=== PATIENT | female | born 1950 | race Caucasian/White ===

== ENCOUNTER 2019-09-26 12:44 | Outpatient (CLI) | payer MEDICARE, OTHER, SELFPAY ==
--- NOTE | 2019-09-26 12:54 | MM_ITS ---
WS: [id number] BILATERAL DIGITAL SCREENING MAMMOGRAPHY WITH CAD CLINICAL INFORMATION: SCREEN HISTORY: Screening mammogram. No current complaints. COMPARISON: November 29, 2015 TECHNIQUE: Bilateral CC and MLO views. FINDINGS: The breasts are composed of heterogeneous fibroglandular density tissue, which can limit the detectio n of small underlying mass lesions. No suspicious mass, asymmetry, calcifications, or architectural d istortion. No evidence of malignancy. Stable dystrophic calcification left breast. MM/[place] [id number] IMPRESSION: BI-RADS: 2-Benign FOLLOW UP: 1 Year Follow-up Recommend return to annual screening mammography.
== END 2019-09-26 12:45 | disposition home or self-care (01) ==
LOC: RADSHAW 12:50
PROVIDERS: PCP Family Medicine; Visit Provider Family Medicine
DX: Z12.31 Encounter for screening mammogram for malignant neoplasm of breast (principal)
CPT/HCPCS: 77067

== ENCOUNTER 2020-04-05 09:09 | Outpatient (CLI) | payer MEDICARE, OTHER, SELFPAY ==
--- NOTE | 2020-04-05 09:15 | US_ITS ---
WS: [id number] ULTRASOUND RENAL TECHNIQUE: Ultrasound examination of both kidneys. CLINICAL INFORMATION: RENAL INSUFFICIENCY COMPARISON: None. FINDINGS: RIGHT: Small cyst noted right kidney measuring 1.3 x 1.5 cm Right kidney is normal in size and appearance. Echogenicity: Normal. Cortical thickness: 1.2 cm; Normal. Hydronephrosis: None. Perinephric fluid: None. Right kidney measures: 9.7 cm x 4.8 cm x 4.2 cm. LEFT: Left kidney is normal in size and appearance. Echogenicity: Normal. Cortical thickness: 1.8 cm; Normal. Hydronephrosis: None. Perinephric fluid: None. Left kidney measures: 9.2 cm x 4.5 cm x 4.2 cm. Normal visualized aorta. Normal bladder. US/US renal BI* [id number] IMPRESSION: 1. Small simple cyst mid right kidney measuring 1.3 x 1.5 CM. 2. No hydronephrosis in either kidney.
== END 2020-04-05 09:10 | disposition home or self-care (01) ==
LOC: US 09:10
PROVIDERS: PCP Family Medicine; Visit Provider Family Medicine
DX: N28.9 Disorder of kidney and ureter, unspecified (principal); N28.1 Cyst of kidney, acquired
CPT/HCPCS: 76770

== ENCOUNTER 2020-11-16 15:01 | Outpatient (CLI) | payer MEDICARE, OTHER, SELFPAY ==
--- NOTE | 2020-11-16 15:13 | MM_ITS ---
WS: [id number] BILATERAL DIGITAL SCREENING MAMMOGRAPHY WITH CAD CLINICAL INFORMATION: SCREENING HISTORY: Screening mammogram. No current complaints. COMPARISON: September 26, 2019 TECHNIQUE: Bilateral CC and MLO views. FINDINGS: The breasts are composed of heterogeneous fibroglandular density tissue, which can limit the detectio n of small underlying mass lesions. 7 mm asymmetric density inferior left breast best seen on the MLO view, likely at the 6:00 position on the cc view. This is more prominent compared to previous and re commend further evaluation with spot compression views and ultrasound. Stable dystrophic calcification left breast. A few lucent centered calcifications. MM/[place] [id number] IMPRESSION: BI-RADS: 0-Incomplete: Need additional imaging evaluation FOLLOW UP: Need Additional Imaging Recommend left diagnostic mammography and ultrasound for the asymmetric density left breast.
== END 2020-11-16 15:02 | disposition home or self-care (01) ==
LOC: RADSHAW 15:08
PROVIDERS: PCP Family Medicine; Visit Provider Family Medicine
DX: Z12.31 Encounter for screening mammogram for malignant neoplasm of breast (principal)
CPT/HCPCS: 77067

== ENCOUNTER 2020-12-06 14:05 | Outpatient (CLI) | payer MEDICARE, OTHER, SELFPAY ==
--- NOTE | 2020-12-06 14:11 | MM_ITS ---
WS: [id number] LEFT DIGITAL MAMMOGRAPHY WITH CAD CLINICAL INFORMATION: ABNORMAL MAMMOGRAM LT BREAST LUMP TECHNIQUE: 3 views of the left breast were obtained. FINDINGS: The left breast is composed of heterogeneous fibroglandular density tissue, which can limit the detec tion of small underlying mass lesions. Asymmetric density inferior left breast is again seen but less distinct today. Ultrasound left breast is pending. ULTRASOUND BREAST LEFT TECHNIQUE: Ultrasound left breast focused area of concern. CLINICAL INFORMATION: ABNORMAL MAMMOGRAM LT BREAST LUMP COMPARISON: None. FINDINGS: Ultrasound left breast the 6:00 position 3 cm from the nipple. Tiny hypoechoic lesion at the 6:00 pos ition measuring 4.0 x 2.0 x 4.6 mm likely corresponds to the mammographic density. This tiny lesion i s indeterminant and Recommend further evaluation with ultrasound-guided biopsy. MM/MM spot [facility] [id number] IMPRESSION: BI-RADS: 4-Suspicious Finding-Biopsy Should Be Considered FOLLOW UP: US Guided Biopsy Recommended RECOMMEND ULTRASOUND-GUIDED BIOPSY OF THE SMALL 6:00 LEFT BREAST LESION
== END 2020-12-06 14:06 | disposition home or self-care (01) ==
LOC: RADSHAW 14:09
PROVIDERS: PCP Family Medicine; Visit Provider Family Medicine
DX: R92.8 Other abnormal and inconclusive findings on diagnostic imaging of breast (principal); N63.25 Unspecified lump in the left breast, overlapping quadrants
CPT/HCPCS: 76642; 77065

== ENCOUNTER 2020-12-22 12:54 | Outpatient (CLI) | payer MEDICARE, OTHER, SELFPAY ==
--- NOTE | 2020-12-22 13:15 | US_ITS ---
WS: [id number] ULTRASOUND-GUIDED LEFT BREAST BIOPSY HISTORY: ABNORMAL MAMMOGRAM LEFT BREAST COMPARISON: 2020, 11/16/2020 and 09/26/2019 Procedure, risks and complications are explained to the patient. Medications are reviewed. Consent is obtained. The mass in the LEFT breast is localized with ultrasound. Skin is cleansed with ChloraPrep and anesth etized with 1% buffered lidocaine. Small dermatome is made. Under sterile conditions mass is biopsied with a 14-gauge Achieve needle. Multiple core biopsies are performed. Material placed in formalin an d sent to pathology for review. No complications encountered. Breast tissue marker ([employer] ultrasound enhanced ribbon): Single. Patient left the radiology suite with no complications. Patient is instructed to return to [facility] or [facility] with any concerns. US/[place] [id number] IMPRESSION: 1. Uncomplicated core needle biopsy LEFT breast nodule at 6:00. PATHOLOGY: Negative for malignancy benign breast tissue with stromal sclerosis and fat necrosis. RECOMMENDATION: 6 month follow-up. Recommend diagnostic LEFT mammogram and possible breast ultrasound follow-up in 6 months. Follow-up imaging is to confirm there is no enlarging mass.
== END 2020-12-22 12:55 | disposition home or self-care (01) ==
PROVIDERS: PCP Family Medicine; Visit Provider Family Medicine
DX: R92.8 Other abnormal and inconclusive findings on diagnostic imaging of breast (principal); N64.1 Fat necrosis of breast
CPT/HCPCS: 19083; 88305

== ENCOUNTER 2020-12-26 18:09 | Observation (INO) | payer MEDICARE, OTHER, SELFPAY ==
[2020-12-26] VITALS (7 sets, daily range): BP systolic 142–177; BP diastolic 71–93; PULSE 54–71; RESP 16–18; TEMP 36.6; O2SAT 94–98; BMI 29.1
--- NOTE | 2020-12-26 18:21 | ECG_ITS ---
[facility] Test Date: 2020-12-26 Pat Name: Bing Julien Department: Room: Gender: Female Drone Operator: : 1950 Requested By: Vince Stovall Order Number: [id number] Nba MD: Bessie Gomez M.D. Measurements Intervals [place] Rate: 58 P: -11 SC: 128 QRS: -24 QRSD: 89 T: 50 QT: 429 QTc: 424 Interpretive Statements SINUS BRADYCARDIA LOW QRS VOLTAGE IN PRECORDIAL LEADS [QRS DEFLECTION < 1.0 mV IN CHEST LEADS] POSSIBLE ANTERIOR MYOCARDIAL INFARCTION , OF INDETERMINATE AGE [30 ms Q WAVE IN V3/V4, OR R < 0.2 mV IN V4] Compared to ECG 01/16/2017 17:36:21 Low QRS voltage now present Myocardial infarct finding now present Sinus rhythm no longer present Sinus arrhythmia no longer present Short SC interval no longer present Electronically Signed On 12-27-2020 13:05:28 CDT by Bessie Gomez M.D. [email or web address]
--- NOTE | 2020-12-26 19:00 | ED_ITS ---
HPI - General Adult General: Chief complaint: Chest Pain Stated complaint: Chest, abd, back pain Time Seen by Provider: 12/26/20 18:28 History of Present Illness: HPI narrative: Patient is a 70-year-old female with a history of hypertension, recent UTI status post antibiotics, who presents emergency room with complaints of midepigastric abdominal pain and right upper quadrant abdominal pain shortly after eating today. Patient describes an achy pain that started 30 minutes after eating. In addition, patient also reports a dull chest pain that radiates towards the back which has been going on for the last 4 years. Patient was admitted to the hospital for evaluate chest pain a few years ago without any significant findings. At this time, patient denies any chest pain, nausea/vomiting, diaphoresis, shoulder pain back pain, diarrhea, melena/hematoch ezia, cough runny nose, sore throat. Onset:1 hr ago Duration:1 hr Location:home Severity:moderate Review of Systems Narrative: Constitutional: No fever, no chills. HEENT: No vision changes CV: +- pain radiating to the back no palpitations PULM: no cough, no dyspnea. GI: +abdominal pain, -N/-V/-D. : No dysuria MSKEL: No muscle pain SKIN: No new rashes, no lesions. NEURO: No headache, no focal weakness. HEME: No visible bruises PSYCH: Normal mood Physical Exam Narrative: EXAM NARRATIVE: Head: Atraumatic Eyes: PERRL, conjunctiva without injection ENT: Mucous membrane moist NECK: Supple, ROM intact LUNGS: LCTAB, no crackles/rhonchi CV: RRR ABDOMEN: Soft, +mild epigastric abdominal tenderness, neg baez signs, no guarding or rebound tenderness. EXTREMITY: Normal ROM SKIN: No rash or erythema NEURO: Awake and alert, no focal motor deficits PSYCH: Normal mood and affect Course Vital Signs: Vital signs: Vital Signs Temperature 97.9 F 12/26/20 18:22 Pulse Rate 70 12/26/20 21:55 Respiratory Rate 18 12/26/20 21:55 Blood Pressure 177/77 12/26/20 21:55 Pulse Oximetry 98 12/26/20 21:55 MDM - General Adult MDM Narrative: Medical decision making narrative: 70F w/ hx of HTN, stress test >3 years ago presenting to the ED with chronic chest pain radiating to the back chronic and new onset of epigastric pain. Currently chest pain free. Troponin of 16 above prior baseline. EKG showing regular sinus rhythm at HT of [address] elevations. T wave inversions in V1-V2. Normal AL, QRS, QT intervals. Given ASA, nitro. Mid-epigastric pain - will treat with pepcid and GI cocktail Patient will be admitted for chest pain workup. Lab Data: Labs: Lab Results 12/26/20 12/26/20 12/26/20 Range/Units 18:54 18:54 18:54 WBC 9.0 (4.0-10.0) 10^3/ uL RBC 5.01 (4.1-5.3) 10^6/u L Hgb 14.3 (11.5-15.3) g/dL Hct 44.6 (37.0-47.0) % MCV 89.0 (81-99) fl MCH 28.5 (28.0-34.0) pg MCHC 32.1 (30.0-36.0) g/dL RDW 12.6 (12.1-15.1) % Plt Count 299 (130-400) 10^3/c mm MPV 11.7 H (7.4-10.4) fL Neut % (Auto) 70.7 % Lymph % (Auto) 18.7 % [place] % (Auto) 8.3 % Eos % (Auto) 1.2 % Baso % (Auto) 0.8 % Neut # (Auto) 6.33 (1.8-7.7) 10^3/u L Lymph # (Auto) 1.7 (0.8-4.8) 10^3/u L Bleck[place] # (Auto) 0.7 (0.2-0.9) 10^3/u L Eos # (Auto) 0.1 (0.0-0.8) 10^3/u L Baso # (Auto) 0.1 (0.0-0.1) 10^3/u L Nucleated RBC % (a uto) 0 % Nucleated RBCs # 0.0 /100WBC D-Dimer (0-0.59) ug/mIFE U Sodium 133 L (136-145) mmol/L Potassium 4.1 (3.5-5.1) mmol/L Chloride 96 L (98-107) mmol/L Carbon Dioxide 25 (22-29) mmol/L Anion Gap 16.1 (5-19) BUN 12 (8-23) mg/dL Creatinine 1.0 H (0.5-0.9) mg/dL GFR Calculation 55.1 L (90-130) mL/min Glucose 104 (65-115) mg/dL Calculated Osmolal ity 276 L (285-295) mOsm/k g Calcium 10.2 (8.5-10.5) mg/dL Total Bilirubin 0.2 (0.15-1.2) mg/dL AST 11 (0-32) U/L ALT 8 (0-33) U/L Alkaline Phosphata se 74 (35-105) IU/L Troponin T Gen 5 n g/L 17 H (0-10) ng/L Total Protein 6.5 L (6.6-8.7) g/dL Albumin 4.2 (3.5-5.2) g/dL Globulin 2.3 (1.3-4.6) g/dL Lipase 56 (13-60) U/L Urine Color (Yellow) Urine Appearance (CLEAR) Urine pH (5-7) Ur Specific Gravit y (1.005-1.030) Urine Protein (Negative) Urine Glucose (UA) (Normal) Urine Ketones (Negative) Urine Blood (Negative) Urine Nitrate (Negative) Urine Bilirubin (Negative) Urine Urobilinogen (Negative) mg/dL Ur Leukocyte Freya ase (Negative) 12/26/20 12/26/20 12/26/20 Range/Units 19:00 19:23 21:41 WBC (4.0-10.0) 10^3/ uL RBC (4.1-5.3) 10^6/u L Hgb (11.5-15.3) g/dL Hct (37.0-47.0) % MCV (81-99) fl MCH (28.0-34.0) pg MCHC (30.0-36.0) g/dL RDW (12.1-15.1) % Plt Count (130-400) 10^3/c mm MPV (7.4-10.4) fL Neut % (Auto) % Lymph % (Auto) % [place] % (Auto) % Eos % (Auto) % Baso % (Auto) % Neut # (Auto) (1.8-7.7) 10^3/u L Lymph # (Auto) (0.8-4.8) 10^3/u L [place] # (Auto) (0.2-0.9) 10^3/u L Eos # (Auto) (0.0-0.8) 10^3/u L Baso # (Auto) (0.0-0.1) 10^3/u L Nucleated RBC % (a uto) % Nucleated RBCs # /100WBC D-Dimer <= 0.27 (0-0.59) ug/mIFE U Sodium (136-145) mmol/L Potassium (3.5-5.1) mmol/L Chloride (98-107) mmol/L Carbon Dioxide (22-29) mmol/L Anion Gap (5-19) BUN (8-23) mg/dL Creatinine (0.5-0.9) mg/dL GFR Calculation (90-130) mL/min Glucose (65-115) mg/dL Calculated Osmolal ity (285-295) mOsm/k g Calcium (8.5-10.5) mg/dL Total Bilirubin (0.15-1.2) mg/dL AST (0-32) U/L ALT (0-33) U/L Alkaline Phosphata se (35-105) IU/L Troponin T Gen 5 n g/L 20 H (0-10) ng/L Total Protein (6.6-8.7) g/dL Albumin (3.5-5.2) g/dL Globulin (1.3-4.6) g/dL Lipase (13-60) U/L Urine Color Yellow (Yellow) Urine Appearance Clear (CLEAR) Urine pH 5 (5-7) Ur Specific Gravit y 1.015 (1.005-1.030) Urine Protein Neg (Negative) Urine Glucose (UA) Norm (Normal) Urine Ketones Negative (Negative) Urine Blood Neg (Negative) Urine Nitrate Negative (Negative) Urine Bilirubin Neg (Negative) Urine Urobilinogen Norm (Negative) mg/dL Ur Leukocyte Freya ase Negative (Negative) Imaging Data^: Other Imaging: Radiologist's impression: [facility] [id number] ReportSigned Patient: David Julien #: [id number]: [id number]#:[id number]/Sex: 70 / FADM Date: 12/26/20Loc: ERRoom/Bed:Attending Dr: Ordering Provider/Ordering MD: Vince Stovall MD Date of Service: 12/26/20 Procedure(s): XR chest 1V portable [id number] Accession Number(s): [id number] Report Number: [id number] PROCEDURE INFORMATION: Exam: XR Chest Exam date and time: 12/26/2020 7:01 PM Age: 70 years old Clinical indication: Pain; Chest pressure; Additional info: Chest pain TECHNIQUE: Imaging protocol: XR of the chest. Views: 1 view. COMPARISON: CR Chest 1 [place] [id number] 01/16/2017 10:50 AM FINDINGS: Lungs: Unremarkable. No consolidation. Pleural spaces: Unremarkable. No pleural effusion. No pneumothorax. Heart/Mediastinum: Unremarkable. No cardiomegaly. Bones/joints: Unremarkable. XR/XR chest 1V portable [id number] IMPRESSION: No acute findings. Dictated By:Lb Cano By:Lb Cano Date/Time:12/26/20D/ [address] [id number] ReportSigned Patient: David Julien #: [id number]: [id number]#:[id number]/Sex: 70 / FADM Date: 12/26/20Loc: ERRoom/Bed:Attending Dr: Ordering Provider/Ordering MD: Vince Stovall MD Date of Service: 12/26/20 Procedure(s): XR chest 1V portable [id number] Accession Number(s): [id number] Report Number: [id number] PROCEDURE INFORMATION: Exam: XR Chest Exam date and time: 12/26/2020 7:01 PM Age: 70 years old Clinical indication: Pain; Chest pressure; Additional info: Chest pain TECHNIQUE: Imaging protocol: XR of the chest. Views: 1 view. COMPARISON: CR Chest 1 [place] [id number] 01/16/2017 10:50 AM FINDINGS: Lungs: Unremarkable. No consolidation. Pleural spaces: Unremarkable. No pleural effusion. No pneumothorax. Heart/Mediastinum: Unremarkable. No cardiomegaly. Bones/joints: Unremarkable. XR/XR chest 1V portable [id number] IMPRESSION: No acute findings. Dictated By:Lb Cano By:Lb Cano Date/Time:12/26/20D/ 32 Discharge Plan Discharge Prescriptions: No Action levothyroxine 100 mcg tablet RF: 0 lorazepam 0.5 mg tablet RF: 0 lisinopril 10 mg tablet RF: 0 lovastatin 20 mg tablet RF: 0 escitalopram oxalate 10 mg tablet RF: 0 Coding Level of Care Code ED Recreational Programs Director for Jaret Jasso
--- NOTE | 2020-12-26 19:01 | USR_ITS ---
PROCEDURE INFORMATION: Exam: US Abdomen, Limited; Right Upper Quadrant Exam date and time: 12/26/2020 7:01 PM Age: 70 years old Clinical indication: Abdominal pain; Acute; Additional info: Ruq abd pain with eating, rule out stone TECHNIQUE: Imaging protocol: US abdomen. Real time ultrasound with image documentation. Limited exam focused on the right upper quadrant. COMPARISON: US renal BI* [id number] 04/05/2020 9:19 AM FINDINGS: Liver: Normal. No masses. Gallbladder: Normal. No gallstones. There is no gallbladder wall thickening. Common bile duct: Normal. No stones. No dilation. Pancreas: Visualized pancreas is unremarkable. Right kidney: Normal. No mass. No hydronephrosis. US/US gall bladder [id number] IMPRESSION: No acute findings.
--- NOTE | 2020-12-26 19:01 | XRR_ITS ---
PROCEDURE INFORMATION: Exam: XR Chest Exam date and time: 12/26/2020 7:01 PM Age: 70 years old Clinical indication: Pain; Chest pressure; Additional info: Chest pain TECHNIQUE: Imaging protocol: XR of the chest. Views: 1 view. COMPARISON: CR Chest 1 [place] [id number] 01/16/2017 10:50 AM FINDINGS: Lungs: Unremarkable. No consolidation. Pleural spaces: Unremarkable. No pleural effusion. No pneumothorax. Heart/Mediastinum: Unremarkable. No cardiomegaly. Bones/joints: Unremarkable. XR/XR chest 1V portable [id number] IMPRESSION: No acute findings.
[2020-12-26 19:12] LABS: Basophils # 0.1 10^3/uL (0.0-0.1); Basophils % 0.8 %; Eosinophils # 0.1 10^3/uL (0.0-0.8); Eosinophils % 1.2 %; Hematocrit 44.6 % (37.0-47.0); Hemoglobin 14.3 g/dL (11.5-15.3); Lymphocytes # 1.7 10^3/uL (0.8-4.8); Lymphocytes % 18.7 %; Mean Corpuscular HGB Conc 32.1 g/dL (30.0-36.0); Mean Corpuscular Hemoglobin 28.5 pg (28.0-34.0); Mean Platelet Volume 11.7 fL (7.4-10.4); Monocytes # 0.7 10^3/uL (0.2-0.9); Monocytes % 8.3 %; Neutrophils # 6.33 10^3/uL (1.8-7.7); Neutrophils % 70.7 %; Nucleated Red Blood Cells % 0 %; Platelet Count 299 10^3/cmm (130-400); Red Blood Count 5.01 10^6/uL (4.1-5.3); Red Cell Distribution Width 12.6 % (12.1-15.1)
[2020-12-26 19:38] LABS: Troponin T (5th) Once 17 ng/L (0-10)
[2020-12-26 19:39] LABS: Alanine Aminotransferase 8 U/L (0-33); Albumin Level 4.2 g/dL (3.5-5.2); Alkaline Phosphatase 74 IU/L (35-105); Anion Gap 16.1 (5-19); Aspartate Amino Transferase 11 U/L (0-32); Blood Urea Nitrogen 12 mg/dL (8-23); Calcium 10.2 mg/dL (8.5-10.5); Carbon Dioxide 25 mmol/L (22-29); Chloride 96 mmol/L (98-107); Globulin 2.3 g/dL (1.3-4.6); Glomerular Filtration Rate 55.1 mL/min (90-130); Glucose 104 mg/dL (65-115); Lipase 56 U/L (13-60); Osmolality Calculated 276 mOsm/kg (285-295); Potassium 4.1 mmol/L (3.5-5.1); Sodium 133 mmol/L (136-145); Total Bilirubin 0.2 mg/dL (0.15-1.2); Total Protein 6.5 g/dL (6.6-8.7)
[2020-12-26 20:04] LABS: Add Urine Microscopic? NO; Charge for UA Resulting for Rev
[2020-12-26 20:09] LABS: Bilirubin Urine Neg (Negative); Blood Urine Neg (Negative); Glucose Urine UA Norm (Normal); Ketones Urine Negative (Negative); Leukocyte Esterase Urine Negative (Negative); Nitrate Urine Negative (Negative); Protein Urine Neg (Negative); Specific Gravity, Urine 1.015 (1.005-1.030); Urine Appearance Clear (CLEAR); Urine Color Yellow (Yellow); Urobilinogen Urine Norm (Negative); pH Urine 5 (5-7)
[2020-12-26 20:23] LABS: D Dimer <= 0.27 ug/mIFEU (0-0.59)
[2020-12-26] MEDS: ondansetron 2 mg/ML SDV 2 mL 4 MG IVP (21:47)
[2020-12-26 22:08] LABS: Troponin T (5th) Once 20 ng/L (0-10)
[2020-12-26] MEDS: LORazepam 0.5 mg Tablet PO (22:55)
[2020-12-26] MEDS: aspirin 325 mg EC Tablet PO (22:56)
[2020-12-26] MEDS: lidocaine 2% viscous 15 ML, aluminum-mag hydrox-simethicon 30 ML, sucralfate oral liq 1 GM PO (22:56)
[2020-12-26] MEDS: famotidine 20 mg Tablet PO (22:56)
[2020-12-27] VITALS (8 sets, daily range): BP systolic 123–146; BP diastolic 49–78; PULSE 51–84; RESP 14–17; TEMP 36.9–37.7; O2SAT 96–97; BMI 29.6
--- NOTE | 2020-12-27 01:16 | P.HP_ITS ---
Providers/Chief Complaint Admitting Physician: Coby Fall MD Primary Care Provider: Manny Saini DO Chief Complaint: Chest, abd, back pain History of Present Illness Bing Julien is a 70 year old female who presents to the emergency room with chief complaint of pain in her lower substernal area/upper epigastric region, back pain and shoulder pain. She has had problems with bilateral shoulder/shoulder blade pain off and on for the last few years. Over the last month or so however she is started having a different kind of pain. Its been a somewhat constant lower substernal sharp achiness that fluctuates throughout the day. She has not necessarily noticed anything specific making it better or worse. Its not worse in the supine position. Sometimes it gets worse with exertion, sometimes it gets better with exertion. The pain is not worse after eating. When the pain occurs however it is associated with nausea and dry heaves. Not particularly short of breath. Along with this she has had no appetite for the last couple of weeks. Reports a 7 pound weight loss due to this. She has been having increased nausea when she tries to eat and thinks that that has led to her not eating well. She has had a sensation of needing to burp and some bloating. On specific questioning she did relate that some of her pain particularly in her back is better after she is had an episode of dry heaving. She had previously taken Protonix but it was stopped due to renal issues and she was switched to Pepcid. She takes it twice a day. In the emergency room she was noted to have some bradycardia. In addition to this she had a initial troponin of 17. Later troponin, not done within a specific 2-hour timeframe was 20. D-dimer was checked and was negative. Twelve-lead EKG did show sinus bradycardia at 58 and nonspecific changes. She has a history of hypertension and hypothyroidism. She had a recent breast biopsy on the left but does not complain of pain on that side. She had a UTI recently and completed a course of antibiotics but her symptoms did not get worse after that. She is a former smoker but no current tobacco use. Denies NSAID use. She still has her gallbladder. With her presentation, findings and history she is being admitted to observation for further evaluation. Review of Systems 2 Const: Reports: change in weight and fatigue; Denies: fever(s), chills or change in appetite Eyes: Denies: change in vision ENMT: Reports: post nasal drip (sinus); Denies: throat pain Card: Reports: chest pain; Denies: palpitations or edema Resp: Denies: dyspnea, productive cough or non-productive cough GI: Reports: abdominal pain, nausea, vomiting (dry heaves), bloating and belching; Denies: diarrhea, constipation, change in bowel habits, hematochezia or melena : Denies: difficulty voiding or hematuria Musc: Reports: back pain; Denies: extremity pain or extremity swelling Skin/Breast: Denies: rash, pruritus, sores or breast pain (none at biopsy site) Neuro: Denies: headache(s), numbness in extremities, weakness in extremities or difficulty walking Psych: Reports: anxiety; Denies: depression Eder/Lymph: Denies: easy bruising or easy bleeding Medications/Allergies Home Medications Medication Instructions Recorded Confirmed Last Taken Type escitalopram oxalate 10 mg PO BEDTIME 12/26/20 12/27/20 1 Day Ago History ~12/26/20 10 mg levothyroxine 100 mcg PO DAILY 12/26/20 12/27/20 1 Day Ago History ~12/26/20 100 mcg lisinopril 10 mg PO BEDTIME 12/26/20 12/27/20 1 Day Ago History ~12/26/20 10 mg lovastatin 20 mg PO BEDTIME 12/26/20 12/27/20 1 Day Ago History ~12/26/20 lorazepam 1 mg PO BEDTIME 12/27/20 12/27/20 1 Day Ago History ~12/26/20 1 mg Allergies Allergy/AdvReac Type Severity Reaction Status Date / Time codeine Allergy ALGY-Rash Verified 12/26/20 18:25 PFSH Acute PFSH: Medical History (Updated 12/27/20 @ 06:12 by Coby Fall MD) Anxiety CKD (chronic kidney disease) stage 3, GFR 30-59 ml/min GERD (gastroesophageal reflux disease) 2 para 2 History of melanoma Hyperlipidemia Hypertension Hypothyroidism Surgical History (Updated 12/27/20 @ 06:08 by Coby Fall MD) History of x2 History of melanoma excision left leg History of tonsillectomy Family History (Updated 12/27/20 @ 06:08 by Coby Fall MD) Father CAD (coronary artery disease) Diabetes Mother Dementia Social History (Updated 12/27/20 @ 06:09 by Coby Fall MD) Smoking and tobacco status: former smoker Alcohol intake: never Substance/Drug Use: never Vitals/I&O/Wt Last Vital Signs Temp 98.6 F 12/27/20 01:13 Pulse 58 L 12/27/20 01:13 Resp 14 12/27/20 01:13 BP 146/74 12/27/20 01:13 Pulse Ox 96 12/27/20 01:13 Weight last 48 hrs Weight 80.739 kg Physical Exam Narrative: EXAM NARRATIVE: Constitutional: awake and alert HEENT: normocephalic, pupils reactive, moist mucosa Neck: supple Respiratory: clear bilaterally Cardiovascular: regular, no murmurs, no chest wall tenderness Abdomen: soft, mild epigastric tenderness, positive bowel sounds Extremities: no edema or calf tenderness Skin: dry, no rashes Neuro:speech clear, face symmetric, moves all extremities Psych: normal affect Data : 12/26/20 18:54 12/27/20 07:00 Other Labs: Laboratory Results WBC 9.0 10^3/uL (4.0-10.0) 12/26/20 18:54 RBC 5.01 10^6/uL (4.1-5.3) 12/26/20 18:54 Hgb 14.3 g/dL (11.5-15.3) 12/26/20 18:54 Hct 44.6 % (37.0-47.0) 12/26/20 18:54 MCV 89.0 fl (81-99) 12/26/20 18:54 MCH 28.5 pg (28.0-34.0) 12/26/20 18:54 MCHC 32.1 g/dL (30.0-36.0) 12/26/20 18:54 RDW 12.6 % (12.1-15.1) 12/26/20 18:54 Plt Count 299 10^3/cmm (130-400) 12/26/20 18:54 MPV 11.7 fL (7.4-10.4) H 12/26/20 18:54 Neut % (Auto) 70.7 % 12/26/20 18:54 Lymph % (Auto) 18.7 % 12/26/20 18:54 [place] % (Auto) 8.3 % 12/26/20 18:54 Eos % (Auto) 1.2 % 12/26/20 18:54 Baso % (Auto) 0.8 % 12/26/20 18:54 Neut # (Auto) 6.33 10^3/uL (1.8-7.7) 12/26/20 18:54 Lymph # (Auto) 1.7 10^3/uL (0.8-4.8) 12/26/20 18:54 [place] # (Auto) 0.7 10^3/uL (0.2-0.9) 12/26/20 18:54 Eos # (Auto) 0.1 10^3/uL (0.0-0.8) 12/26/20 18:54 Baso # (Auto) 0.1 10^3/uL (0.0-0.1) 12/26/20 18:54 Nucleated RBC % (auto) 0 % 12/26/20 18:54 Nucleated RBCs # 0.0 /100WBC 12/26/20 18:54 D-Dimer <= 0.27 ug/mIFEU (0-0.59) 12/26/20 19:00 Sodium 133 mmol/L (136-145) L 12/26/20 18:54 Potassium 4.1 mmol/L (3.5-5.1) 12/26/20 18:54 Chloride 96 mmol/L (98-107) L 12/26/20 18:54 Carbon Dioxide 25 mmol/L (22-29) 12/26/20 18:54 Anion Gap 16.1 (5-19) 12/26/20 18:54 BUN 12 mg/dL (8-23) 12/26/20 18:54 Creatinine 1.0 mg/dL (0.5-0.9) H 12/26/20 18:54 GFR Calculation 55.1 mL/min (90-130) L 12/26/20 18:54 Glucose 104 mg/dL (65-115) 12/26/20 18:54 Calculated Osmolality 276 mOsm/kg (285-295) L 12/26/20 18:54 Calcium 10.2 mg/dL (8.5-10.5) 12/26/20 18:54 Total Bilirubin 0.2 mg/dL (0.15-1.2) 12/26/20 18:54 AST 11 U/L (0-32) 12/26/20 18:54 ALT 8 U/L (0-33) 12/26/20 18:54 Alkaline Phosphatase 74 IU/L (35-105) 12/26/20 18:54 Troponin T Gen 5 ng/L 20 ng/L (0-10) H 12/26/20 21:41 Total Protein 6.5 g/dL (6.6-8.7) L 12/26/20 18:54 Albumin 4.2 g/dL (3.5-5.2) 12/26/20 18:54 Globulin 2.3 g/dL (1.3-4.6) 12/26/20 18:54 Lipase 56 U/L (13-60) 12/26/20 18:54 Urine Color Yellow (Yellow) 12/26/20 19:23 Urine Appearance Clear (CLEAR) 12/26/20 19:23 Urine pH 5 (5-7) 12/26/20 19:23 Ur Specific [place] 1.015 (1.005-1.030) 12/26/20 19:23 Urine Protein Neg (Negative) 12/26/20 19:23 Urine Glucose (UA) Norm (Normal) 12/26/20 19:23 Urine Ketones Negative (Negative) 12/26/20 19:23 Urine Blood Neg (Negative) 12/26/20 19:23 Urine Nitrate Negative (Negative) 12/26/20 19:23 Urine Bilirubin Neg (Negative) 12/26/20 19:23 Urine Urobilinogen Norm mg/dL (Negative) 12/26/20 19:23 Ur Leukocyte Esterase Negative (Negative) 12/26/20 19:23 Impressions Chest X-Ray 12/26/20 19:01 IMPRESSION: No acute findings. Gallbladder Ultrasound 12/26/20 19:01 IMPRESSION: No acute findings. A&P Assessment and plan (1) Chest pain: Status: Acute Qualifiers: Chest pain type: precordial pain Qualified Code(s): R07.2 - Precordial pain (2) Epigastric pain: Status: Acute (3) Elevated troponin: Status: Acute (4) Hypertension: Status: Chronic Qualifiers: Hypertension type: essential hypertension Qualified Code(s): I10 - Essential (primary) hypertension (5) Hyperlipidemia: Status: Chronic Qualifiers: Hyperlipidemia type: unspecified Qualified Code(s): E78.5 - Hyperlipidemia, unspecified (6) CKD (chronic kidney disease) stage 3, GFR 30-59 ml/min: Status: Chronic Qualifiers: Chronic kidney disease stage 3 subtype: stage 3a (GFR 45-59) Qualified Code(s): N18.31 - Chronic kidney disease, stage 3a (7) GERD (gastroesophageal reflux disease): Status: Chronic Qualifiers: Esophagitis presence: esophagitis presence not specified Qualified Co de(s): K21.9 - Gastro-esophageal reflux disease without esophagitis (8) Hypothyroidism: Status: Chronic Qualifiers: Hypothyroidism type: acquired Qualified Code(s): E03.9 - Hypothyroidism, unspecified (9) Anxiety: Status: Chronic Additional A&P Information Observation admission Repeat cardiac and's in the morning Telemetry monitoring Echocardiogram Treadmill stress test Check lipid panel Had gallbladder ultrasound in the emergency room Continue Pepcid, reports intolerance to Protonix secondary to kidney dysfunction Add Carafate Continue home lisinopril and lovastatin Continue levothyroxine Continue lorazepam and escitalopram If cardiac work-up unremarkable, I could consider HIDA scan or EGD as next options given her symptoms. She admits that there may be an anxiety component but even when she is not feeling anxious to the same degree she continues to have symptoms. Of note patient states that she cannot take contrast due to her kidney d ysfunction Lovenox for DVT prophylaxis Supportive care otherwise Plans discussed with patient and she was given an opportunity to ask questions. She did indicate that should she need to see a youth accommodation support worker she prefers to see one that her sees I believe she said in [place] rather than here. Full code Attestations Medical Necessity Statement*: Anticipated stay less than 2 midnights for reaso ns noted above. I think patient is experiencing anxiety but we need to make sure that there is not something more significant at play here my primary concern is ruling out a cardiac cause of her symptoms followed by outpatient work-up to evaluate for GI source to include either gallbladder process with normal LFTs or gastritis/esophagitis/ulcers Coding Level of Care Code Acute Managed Care Analyst for g Fwd Diagnoses Chest pain R07.2 Chest pain type: precordial pain Epigastric pain R10.13 Elevated troponin R77.8 Hypertension I10 Hypertension type: essential hypertension Hyperlipidemia E78.5 Hyperlipidemia type: unspecified CKD (chronic kidney disease) stage 3, GFR 30-59 ml/min N18.31 Chronic kidney disease stage 3 subtype: stage 3a (GFR 45-59) GERD (gastroesophageal reflux disease) K21.9 Esophagitis presence: esophagitis presence not specified Hypothyroidism E03.9 Hypothyroidism type: acquired Anxiety F41.9
[2020-12-27] MEDS: sodium chlor 0.45% +KCl 20 mEq 20 MEQ/1,000 ML BAG 75 MEQ IV (02:37)
[2020-12-27] MEDS: enoxaparin 40 mg/0.4 mL Syringe SUBCUT (02:37)
--- NOTE | 2020-12-27 06:00 | ECG_ITS ---
[facility] Test Date: 2020-12-27 Pat Name: Bing Julien Department: Room: 278 Gender: Female Window And Siding Craftsman: VIRGINIE : 1950 Requested By: Coby Fall Order Number: [id number] Nba MD: Bessie Gomez M.D. Measurements Intervals [place] Rate: 67 P: 52 SC: 110 QRS: -3 QRSD: 98 T: 56 QT: 425 QTc: 450 Interpretive Statements SINUS RHYTHM WITH SHORT SC INTERVAL Compared to ECG 12/26/2020 21:47:10 Short SC interval now present Sinus bradycardia no longer present Myocardial infarct finding no longer present Electronically Signed On 12-27-2020 13:18:30 CDT by Bessie Gomez M.D. [id number]
[2020-12-27] MEDS: sucralfate 1 gm Tablet PO ×2 (06:30→10:27)
[2020-12-27] MEDS: LORazepam 0.5 mg Tablet PO (06:30)
--- NOTE | 2020-12-27 06:30 | ECG_ITS ---
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 Interpretive Statements NAME OF STUDY: EXERCISE SESTAMIBI STRESS TEST INDICATION: Chest Pain, PROCEDURE: The baseline electrocardiogram showed normal sinus rhythm with normal ST-Ts. At the baseline, the patient's blood pressure was 152/71 mm Hg with a heart rate of 84. The patient exercised for 8 minutes and 52 seconds on a standard Will protocol. Patient attained a maximum heart rate of 138 beats per minute(90% of the maximum predicted heart rate) with a blood pressure at the peak exercise of 183/89 mm Hg. The EKG at the peak exercise revealed no significant changes except for prominent P waves. Patient did not have any chest pain or any significant arrhythmis with the exercise Sestamibi was injected 1 minute prior to the peak exercise During the recovery phase, there were no new changes. Blood pressure at the end of the recovery phase was 123/68 mm Hg with a heart rate of 85 per minute. CONCLUSION: 1. No significant EKG changes with the [treadmill exercise . The prominent A waves with exercise, may suggest RV pressure overload 2. No exercise-induced chest pain or cardiac arrhythmia 3. Fair exercise tolerance, attained a maximum of 10.2 METs 4. Sestamibi/Sestamibi perfusion results pending; see separate report. Electronically Signed On 12-31-2020 0:27:22 CDT by Lori Irving M.D. [id number]
--- NOTE | 2020-12-27 06:30 | NMCV_ITS ---
NM keisha perf SPECT r/s* [id number] Bing Julien Age: 70 Gender: F : 1950 Exam Date: 12/27/2020 07:15 Ordering Phys: Coby Fall MD Technologist: ASHA Paulson Exam Location: [facility] Indications: CHEST ABD AND BACK PAIN STRESS TEST Please see separate stress test report in [facility] for full findings IMAGE PROTOCOL Rest/Stress 1 Exercise Day Radiopharmaceutical Dose (mCi) Administration Site Administered by Rest: Tc-99m 10.9 IV ASHA Price Sestamibi Stress:Tc-99m 32.6 IV ASHA Paulson Sestamiquin Rest: 27-Dec-2020 60 Discovery 630 Stress: 27-Dec-2020 15 Discovery 630 Radiopharmaceutical was injected at 86 % maximum heart rate. Images obtained in supine and prone position. SPECT RESULTS Technical Quality: Raw Data Analysis: Normal, Breast attenuation Image Corrections: No attenuation or motion correction applied Summed Stress Score: 2 Summed Rest Score: 8 Summed Difference Score: 0 PERFUSION FINDINGS Small area of decreased tracer uptake was noted in the apical inferior and LV apex. No significant reversibility was noted in this region FUNCTIONAL RESULTS (calculated via Gated SPECT) Stress Image LV EF (%): 84 Stress EDV (mL):73 TID: 0.77 Stress ESV (mL):12 FUNCTIONAL FINDINGS: Segmental wall motion analysis revealing no gross wall motion abnormalities. IMPRESSIONS 1. Myocardial perfusion imaging revealing a small area of persistent decreased tracer uptake in the apical inferior and LV apex suggesting myocardial scarring versus attenuation artifact. 2. Normal LV ejection fraction of 84%. 3. LV wall motion analysis revealing no gross wall motion normalities. 4. Normal LV volume. No significant coronary ischemia, based on the above findings Dr Lori Irving MD FACC (Electronically Signed) Final Date: 27 December 2020 16:22 S
[2020-12-27 07:52] LABS: Anion Gap 14.2 (5-19); Blood Urea Nitrogen 11 mg/dL (8-23); Calcium 9.4 mg/dL (8.5-10.5); Carbon Dioxide 24 mmol/L (22-29); Chloride 103 mmol/L (98-107); Glomerular Filtration Rate 55.1 mL/min (90-130); Glucose 95 mg/dL (65-115); Osmolality Calculated 283 mOsm/kg (285-295); Potassium 4.2 mmol/L (3.5-5.1); Sodium 137 mmol/L (136-145); Thyroid Stimulating Hormone 0.07 uIU/mL (0.27-4.20)
[2020-12-27 07:54] LABS: Chol HDL Ratio 2.45 mg/dL (0.0-4.40); Cholesterol 184 mg/dL (0-200); HDL Cholesterol 75 mg/dL (60-100); LDL Cholesterol Calculated 87 mg/dL (50-129); LDL HDL Ratio 1.16 RATIO (0.00-3.22); NT Pro B Type Natriuretic Pept 169 pg/mL (0-125); Triglycerides 108 mg/dL (0-150)
[2020-12-27 08:05] LABS: Troponin T (5th) Once 18 ng/L (0-10)
[2020-12-27] MEDS: levothyroxine 100 mcg Tablet PO (10:27)
[2020-12-27] MEDS: docusate sodium 100 mg Capsule PO (10:27)
[2020-12-27] MEDS: lidocaine 2% viscous 15 ML, aluminum-mag hydrox-simethicon 30 ML, sucralfate oral liq 1 GM PO (10:27)
[2020-12-27] MEDS: famotidine 20 mg Tablet PO (10:27)
--- NOTE | 2020-12-27 15:20 | P.DS_ITS ---
Discharge Providers Date of Admission: 12/27/20 00:51 Date of Discharge: December 27, 2020 Attending Provider at Admission: Coby Fall MD Attending Provider at Discharge: Senia Andre MD Primary Care Provider: Manny Saini DO Diagnoses at Discharge Discharge Diagnosis (1) Chest pain: Status: Acute Qualifiers: Chest pain type: precordial pain Qualified Code(s): R07.2 - Precordial pain (2) Epigastric pain: Status: Acute (3) Elevated troponin: Status: Acute (4) Hypertension: Status: Chronic Qualifiers: Hypertension type: essential hypertension Qualified Code(s): I10 - Essential (primary) hypertension (5) Hyperlipidemia: Status: Chronic Qualifiers: Hyperlipidemia type: unspecified Qualified Code(s): E78.5 - Hyperlipidemia, unspecified (6) CKD (chronic kidney disease) stage 3, GFR 30-59 ml/min: Status: Chronic Qualifiers: Chronic kidney disease stage 3 subtype: stage 3a (GFR 45-59) Qualified Code(s): N18.31 - Chronic kidney disease, stage 3a (7) GERD (gastroesophageal reflux disease): Status: Chronic Qualifiers: Esophagitis presence: esophagitis presence not specified Qualified Code(s): K21.9 - Gastro-esophageal reflux disease without esophagitis (8) Hypothyroidism: Status: Chronic Qualifiers: Hypothyroidism type: acquired Qualified Code(s): E03.9 - Hypothyroidism, unspecified (9) Anxiety: Status: Chronic Reason for Visit Reason for Visit: Chest, abd, back pain Hospital Course Hospital Course HPI Dr. Fall: Bing Julien is a 70 year old female who presents to the emergency room with chief complaint of pain in her lower substernal area/upper epigastric region, back pain and shoulder pain. She has had problems with bilateral shoulder/shoulder blade pain off and on for the last few years. Over the last month or so however she is started having a different kind of pain. Its been a somewhat constant lower substernal sharp achiness that fluctuates throughout the day. She has not necessarily noticed anything specific making it better or worse. Its not worse in the supine position. Sometimes it gets worse with exertion, sometimes it gets better with exertion. The pain is not worse after eating. When the pain occurs however it is associated with nausea and dry heaves. Not particularly short of breath. Along with this she has had no appetite for the last couple of weeks. Reports a 7 pound weight loss due to this. She has been having increased nausea when she tries to eat and thinks that that has led to her not eating well. She has had a sensation of needing to burp and some bloating. On specific questioning she did relate that some of her pain particularly in her back is better after she is had an episode of dry heaving. She had previously taken Protonix but it was stopped due to renal issues and she was switched to Pepcid. She takes it twice a day. In the emergency room she was noted to have some bradycardia. In addition to this she had a initial troponin of 17. Later troponin, not done within a specific 2-hour timeframe was 20. D-dimer was checked and was negative. Twelve-lead EKG did show sinus bradycardia at 58 and nonspecific changes. She has a history of hypertension and hypothyroidism. She had a recent breast biopsy on the left but does not complain of pain on that side. She had a UTI recently and completed a course of antibiotics but her symptoms did not get worse after that. She is a former smoker but no current tobacco use. Denies NSAID use. She still has her gallbladder. With her presentation, findings and history she is being admitted to observation for further evaluation. Hospital course Patient was admitted for evaluation of atypical chest pain. Patient was describing her pain as burning sensation and excessive burping which gets relief with GI cocktail and Protonix. Echo and cardiac stress test unremarkable results as per my discussion with Dr. Irving who read the test Patient will be discharged on sucralfate, Protonix she already has SSRI and benzodiazepine for anxiety related symptoms. In case of persistent symptoms she should follow-up with [employer] to see if she would benefit from an angiogram. Physical Exam Narrative: EXAM NARRATIVE: EXAM NARRATIVE: Constitutional: awake and alert HEENT: normocephalic, pupils reactive, moist mucosa Neck: supple Respiratory: clear bilaterally Cardiovascular: regular, no murmurs, no chest wall tenderness Abdomen: soft, mild epigastric tenderness, positive bowel sounds Extremities: no edema or calf tenderness Skin: dry, no rashes Neuro:speech clear, face symmetric, moves all extremities Psych: normal affec Discharge Data Data Completed and Pending: Completed Studies During Hospitalization Category Date Time Status Sestamibi Stress Test Request Agnes ortiz Exams 12/27/20 06:30 Draft XR chest 1V su ble [id number] Stat Exams 12/26/20 19:01 Completed US gall bladder 7 [id number] Urgent Ultrasound 12/26/20 19:01 Completed Pending at discharge Category Date Time Status Free T4 Free Thyr oxine Routine Lab 12/27/20 15:17 Ordered NM keisha perf SPECT r/s* [id number] Routin e Nuc Med 12/27/20 06:30 Taken CV. echo complete * [id number] Routine Ultrasound 12/27/20 06:23 Ordered Labs from last 24 hours 12/27/20 12/27/20 12/27/20 07:00 07:00 07:00 WBC RBC Hgb Hct MCV MCH MCHC RDW Plt Count MPV Neut % (Auto) Lymph % (Auto) [place] % (Auto) Eos % (Auto) Baso % (Auto) Neut # (Auto) Lymph # (Auto) [place] # (Auto) Eos # (Auto) Baso # (Auto) Nucleated RBC % (a uto) Nucleated RBCs # D-Dimer Sodium 137 Potassium 4.2 Chloride 103 Carbon Dioxide 24 Anion Gap 14.2 BUN 11 Creatinine 1.0 H GFR Calculation 55.1 L Glucose 95 Calculated Osmolal ity 283 L Calcium 9.4 Total Bilirubin AST ALT Alkaline Phosphata se Troponin T Gen 5 n g/L 18 H NT-Pro-B Natriuret Pep 169 H Total Protein Albumin Globulin Triglycerides 108 Cholesterol 184 LDL Cholesterol, C alc 87 HDL Cholesterol 75 LDL/HDL Ratio 1.16 Cholesterol/HDL Ra arnav 2.45 Lipase TSH 0.07 L Urine Color Urine Appearance Urine pH Ur Specific Gravit y Urine Protein Urine Glucose (UA) Urine Ketones Urine Blood Urine Nitrate Urine Bilirubin Urine Urobilinogen Ur Leukocyte Freya ase 12/26/20 12/26/20 12/26/20 21:41 19:23 19:00 WBC RBC Hgb Hct MCV MCH MCHC RDW Plt Count MPV Neut % (Auto) Lymph % (Auto) [place] % (Auto) Eos % (Auto) Baso % (Auto) Neut # (Auto) Lymph # (Auto) [place] # (Auto) Eos # (Auto) Baso # (Auto) Nucleated RBC % (a uto) Nucleated RBCs # D-Dimer <= 0.27 Sodium Potassium Chloride Carbon Dioxide Anion Gap BUN Creatinine GFR Calculation Glucose Calculated Osmolal ity Calcium Total Bilirubin AST ALT Alkaline Phosphata se Troponin T Gen 5 n g/L 20 H NT-Pro-B Natriuret Pep Total Protein Albumin Globulin Triglycerides Cholesterol LDL Cholesterol, C alc HDL Cholesterol LDL/HDL Ratio Cholesterol/HDL Ra arnav Lipase TSH Urine Color Yellow Urine Appearance Clear Urine pH 5 Ur Specific Gravit y 1.015 Urine Protein Neg Urine Glucose (UA) Norm Urine Ketones Negative Urine Blood Neg Urine Nitrate Negative Urine Bilirubin Neg Urine Urobilinogen Norm Ur Leukocyte Freya ase Negative 12/26/20 12/26/20 12/26/20 18:54 18:54 18:54 WBC 9.0 RBC 5.01 Hgb 14.3 Hct 44.6 MCV 89.0 MCH 28.5 MCHC 32.1 RDW 12.6 Plt Count 299 MPV 11.7 H Neut % (Auto) 70.7 Lymph % (Auto) 18.7 [place] % (Auto) 8.3 Eos % (Auto) 1.2 Baso % (Auto) 0.8 Neut # (Auto) 6.33 Lymph # (Auto) 1.7 [place] # (Auto) 0.7 Eos # (Auto) 0.1 Baso # (Auto) 0.1 Nucleated RBC % (a uto) 0 Nucleated RBCs # 0.0 D-Dimer Sodium 133 L Potassium 4.1 Chloride 96 L Carbon Dioxide 25 Anion Gap 16.1 BUN 12 Creatinine 1.0 H GFR Calculation 55.1 L Glucose 104 Calculated Osmolal ity 276 L Calcium 10.2 Total Bilirubin 0.2 AST 11 ALT 8 Alkaline Phosphata se 74 Troponin T Gen 5 n g/L 17 H NT-Pro-B Natriuret Pep Total Protein 6.5 L Albumin 4.2 Globulin 2.3 Triglycerides Cholesterol LDL Cholesterol, C alc HDL Cholesterol LDL/HDL Ratio Cholesterol/HDL Ra arnav Lipase 56 TSH Urine Color Urine Appearance Urine pH Ur Specific Gravit y Urine Protein Urine Glucose (UA) Urine Ketones Urine Blood Urine Nitrate Urine Bilirubin Urine Urobilinogen Ur Leukocyte Freya ase Vitals: Last Vital Signs Temp 99.8 F H 12/27/20 12:00 Pulse 51 L 12/27/20 12:00 Resp 17 12/27/20 12:00 BP 134/78 12/27/20 12:00 Pulse Ox 97 12/27/20 12:00 Discharge Plan Discharge Patient Disposition: Home Condition: Stable Prescriptions: New sucralfate 1 gram Tablet 1 g PO AC&BEDTIME 20 Days Qty: 30 RF: 0 Protonix 20 mg tablet,delayed release (DR/EC) 20 mg PO DAILY 30 Days Qty: 30 RF: 0 Continued levothyroxine 100 mcg tablet 100 mcg PO DAILY RF: 0 lisinopril 10 mg tablet 10 mg PO BEDTIME RF: 0 lovastatin 20 mg tablet 20 mg PO BEDTIME RF: 0 escitalopram oxalate 10 mg tablet 10 mg PO BEDTIME RF: 0 lorazepam 0.5 mg tablet 1 mg PO BEDTIME RF: 0 Referrals: Manny Saini DO [Primary Care Provider] - 01/03/21 8:30 am Discharge Diet: Cardiac Discharge Activity: Increase activity as tolerated Patient Instructions: Sucralfate (By mouth), Pantoprazole (By mouth), Chest Pain (DC), Gastroesophageal Reflux Disease (DC), Hyperlipidemia (DC), Opioid Safety Discharge Attestations Time Spent in Discharge Care*: less than 30 min Quality Metrics Clinical Quality Measures During this hospital stay, did patient experience: None Coding Level of Care Code Acute Chg FW DC note Diagnoses Chest pain R07.2 Chest pain type: precordial pain Epigastric pain R10.13 Elevated troponin R77.8 Hypertension I10 Hypertension type: essential hypertension Hyperlipidemia E78.5 Hyperlipidemia type: unspecified CKD (chronic kidney disease) stage 3, GFR 30-59 ml/min N18.31 Chronic kidney disease stage 3 subtype: stage 3a (GFR 45-59) GERD (gastroesophageal reflux disease) K21.9 Esophagitis presence: esophagitis presence not specified Hypothyroidism E03.9 Hypothyroidism type: acquired Anxiety F41.9
--- NOTE | 2020-12-27 15:43 | PC.NURSE ---
Discharge Note Patient discharged to home via private vehicle accompanied by . Discharge instructions reviewed with patient and/or admissions representative. Mobile pharmacy medications and/or prescriptions provided. Belongings/home medications returned.
[2020-12-27 16:10] LABS: Free T4 Free Thyroxine 1.87 ng/dL (0.82-1.77)
--- NOTE | 2020-12-30 13:28 | PC.SOCIAL ---
follow up discharge call made, patient filled prescriptions and is feeling much better. Has follow up appointment made with PCP.
== END 2020-12-27 16:29 | disposition home or self-care (01) ==
LOC: ER 22:56 → MEDSURG 12-27 00:51
PROVIDERS: Admitting Provider Hospitalist; Emergency Provider Emergency Medicine; PCP Family Medicine; Visit Provider Internal Medicine
DX: R07.2 Precordial pain (principal); R10.13 Epigastric pain; R77.8 Other specified abnormalities of plasma proteins; E78.5 Hyperlipidemia, unspecified; N18.31 Chronic kidney disease, stage 3a; I12.9 Hypertensive chronic kidney disease with stage 1 through stage 4 chronic kidney disease, or unspecified chronic kidney disease; K21.9 Gastro-esophageal reflux disease without esophagitis; E03.9 Hypothyroidism, unspecified; F41.9 Anxiety disorder, unspecified; Z82.49 Family history of ischemic heart disease and other diseases of the circulatory system; Z87.891 Personal history of nicotine dependence
CPT/HCPCS: 36415; 71045; 76705; 78452; 80048; 80053; 80061; 81003; 83690; 83880; 84439; 84443; 84484; 85025; 85378; 93005; 93017; 96365; 96372; 96375; 99285; A9500; G0378; J1650; J2405

== ENCOUNTER 2021-05-05 13:31 | Outpatient (CLI) | payer MEDICARE, OTHER, SELFPAY ==
[2021-05-05 13:41] VITALS: BP 133/74; PULSE 60; RESP 18; TEMP 36.5; O2SAT 99; BMI 27.4
[2021-05-05 14:35] VITALS: BP 128/79; PULSE 53; RESP 16; TEMP 36.7; O2SAT 99
[2021-05-05 15:35] VITALS: BP 140/84; PULSE 58; RESP 18; TEMP 36.8; O2SAT 99
== END 2021-05-05 13:32 | disposition home or self-care (01) ==
PROVIDERS: PCP Family Medicine; Visit Provider Clinical Nurse Specialist Adult Health
DX: U07.1 COVID-19 (principal)
CPT/HCPCS: 96365

== ENCOUNTER → 2021-11-08 09:07 | Outpatient (BNVA) | payer MEDICARE, OTHER, SELFPAY | PROVIDERS: PCP Family Medicine; Visit Provider Internal Medicine Nephrology | DX: N18.31 Chronic kidney disease, stage 3a (principal) | CPT/HCPCS: 80069; 82043; 82306; 82310; 83970; 85025 ==

== ENCOUNTER → 2022-05-23 10:06 | Outpatient (BNVA) | payer MEDICARE, OTHER, SELFPAY | PROVIDERS: PCP Family Medicine; Visit Provider Family Medicine | DX: E78.5 Hyperlipidemia, unspecified (principal); Z13.6 Encounter for screening for cardiovascular disorders; F41.9 Anxiety disorder, unspecified; E03.9 Hypothyroidism, unspecified; I10 Essential (primary) hypertension | CPT/HCPCS: 80053; 80061; 84443; 85025 ==

== ENCOUNTER → 2022-12-04 15:58 | Outpatient (BNVA) | payer MEDICARE, OTHER, SELFPAY | PROVIDERS: PCP Family Medicine; Visit Provider Family Medicine | DX: E03.9 Hypothyroidism, unspecified (principal) | CPT/HCPCS: 80053; 84439; 84443 ==

== ENCOUNTER 2023-03-12 08:39 | Outpatient (CLI) | payer MEDICARE, OTHER, SELFPAY ==
--- NOTE | 2023-03-12 09:11 | MM_ITS ---
WS: [id number] BILATERAL SCREENING DIGITAL TOMOSYNTHESIS MAMMOGRAM WITH CAD HISTORY: Z00.00 - Encounter for general adult medical examination ... COMPARISON: 11/16/2020, 09/26/2019 Bilateral CC and MLO views with tomosynthesis and synthetic mammography submitted. Computer aided det ection analyzed. Breast composition: The breasts are heterogeneously dense, which may obscure small masses. No suspici ous masses, microcalcifications or architectural distortion. Benign coarse calcification anterior lat eral LEFT breast. IMPRESSION: MM/[place] [id number] BI-RADS: 2-Benign FOLLOW UP: 1 Year Follow-up
== END 2023-03-12 08:40 | disposition home or self-care (01) ==
LOC: RAD 08:40
PROVIDERS: PCP Family Medicine; Visit Provider Family Medicine
DX: Z12.31 Encounter for screening mammogram for malignant neoplasm of breast (principal)
CPT/HCPCS: 77063; 77067

== ENCOUNTER → 2023-06-08 13:42 | Outpatient (BNVA) | payer MEDICARE, OTHER, SELFPAY | PROVIDERS: PCP Family Medicine; Visit Provider Family Medicine | DX: R30.0 Dysuria (principal); I10 Essential (primary) hypertension; E03.9 Hypothyroidism, unspecified; F41.9 Anxiety disorder, unspecified; F41.0 Panic disorder [episodic paroxysmal anxiety]; E78.5 Hyperlipidemia, unspecified | CPT/HCPCS: 81000 ==

== ENCOUNTER → 2023-07-16 10:25 | Outpatient (BNVA) | payer MEDICARE, OTHER, SELFPAY | PROVIDERS: PCP Family Medicine; Visit Provider Family Medicine | DX: I10 Essential (primary) hypertension (principal); E03.9 Hypothyroidism, unspecified | CPT/HCPCS: 80053; 84439; 84443 ==

== ENCOUNTER → 2023-12-26 10:10 | Outpatient (BNVA) | payer MEDICARE, OTHER, SELFPAY | PROVIDERS: PCP Family Medicine; Visit Provider Family Medicine | DX: E03.9 Hypothyroidism, unspecified (principal) | CPT/HCPCS: 80053; 84439; 84443; 85025 ==

== ENCOUNTER 2024-03-17 11:03 | Outpatient (CLI) | payer MEDICARE, OTHER, SELFPAY ==
--- NOTE | 2024-03-17 11:07 | MM_ITS ---
WS: [id number] BILATERAL SCREENING DIGITAL TOMOSYNTHESIS MAMMOGRAM WITH CAD HISTORY: SCREENING COMPARISON: 12/06/2020, 03/12/2023, 11/16/2020 Bilateral CC and MLO views with tomosynthesis and synthetic mammography submitted. Computer aided det ection analyzed. Breast composition: The breasts are heterogeneously dense, which may obscure small masses. No suspici ous masses, microcalcifications or architectural distortion. Coarse benign calcification anterior LEF T breast is stable. MM/MM scr BI tomosynthesis [id number] IMPRESSION: BI-RADS: 2 - Benign FOLLOW UP: 1 Year Follow-up
== END 2024-03-17 11:04 | disposition home or self-care (01) ==
LOC: RAD 11:04
PROVIDERS: PCP Family Medicine; Visit Provider Family Medicine
DX: Z12.31 Encounter for screening mammogram for malignant neoplasm of breast (principal)
CPT/HCPCS: 77063; 77067

== ENCOUNTER → 2024-08-04 10:44 | Outpatient (BNVA) | payer MEDICARE, OTHER, SELFPAY | PROVIDERS: PCP Family Medicine; Visit Provider Family Medicine | DX: E03.9 Hypothyroidism, unspecified (principal) | CPT/HCPCS: 80048; 84443 ==

== ENCOUNTER 2025-03-18 07:46 | Outpatient (CLI) | payer MEDICARE, OTHER, SELFPAY ==
--- NOTE | 2025-03-18 07:50 | MM_ITS ---
WS: [id number] VIEWS: MLO and CC views both breasts. 3D digital tomosynthesis is also included in this exam. Comparison made with prior exam of 11/29/2015, 09/26/2019, 11/16/2020, 03/12/2023, 03/17/2024. Findings: The breasts are heterogeneously dense, which may obscure small masses. No sign of suspicious mass, tumor calcification or architectural distortion. Stable appearing nodular densities in both breasts. MM/MM scr BI tomosynthesis [id number] Impression: BI-RADS: 2 - Benign FOLLOW-UP: 1 Year Follow-up This mammogram was also analyzed by the Computer Aided Detection System [employer].
== END 2025-03-18 07:47 | disposition home or self-care (01) ==
LOC: RAD 07:48
PROVIDERS: PCP Family Medicine; Visit Provider Family Medicine
DX: Z12.31 Encounter for screening mammogram for malignant neoplasm of breast (principal); R92.333 Mammographic heterogeneous density, bilateral breasts
CPT/HCPCS: 77063; 77067

== ENCOUNTER → 2025-04-20 09:07 | Outpatient (BNVA) | payer MEDICARE, OTHER, SELFPAY | PROVIDERS: PCP Family Medicine; Visit Provider Family Medicine | DX: E78.5 Hyperlipidemia, unspecified (principal); E03.9 Hypothyroidism, unspecified | CPT/HCPCS: 80053; 80061; 84439; 84443; 85025 ==